=== PATIENT | male | born 2005 | race Caucasian/White ===

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

== ENCOUNTER 2025-03-16 14:47 | Emergency (ER) | payer OTHER ==
[~2025-03-16] VITALS: Wt 108.9 kg
[~2025-03-16 14:47] MED LIST: MELOXICAM15 MG PO
[2025-03-16 15:38] LABS: BASO # 0.0 10*3/uL (0.0-0.1); BASO % 0.4 % (0.0-1.0); EOS # 0.1 10*3/uL (0.0-0.4); EOS % 1.2 % (1.0-4.0); MEAN CELL VOLUME 89.0 fl (80.0-94.0); MEAN CORPUSCULAR HGB 30.0 pg (27.0-31.0); MEAN PLATELET VOLUME 10.7 fl (9.6-12.3); MONO # 0.6 10*3/uL (0.1-1.0); MONO % 7.6 % (3.0-9.0); NEUT # 4.7 10*3/uL (2.3-7.9); NEUT % 64.4 % (47.0-73.0); NUCLEATED RED BLOOD CELL 0.0 % (0.0-0.0); NUCLEATED RED BLOOD CELL 0.0 10*3/uL (0.0-0.0); PLATELET COUNT AUTOMATED 240 10*3/uL (130-400); RED CELL DISTRI WIDTH 12.7 % (0-14.5)
[2025-03-16 16:00] LABS: BUN 13 mg/dl (9-23); SGPT/ALT 50 U/L (5-49)
[2025-03-16] MEDS ORDERED: PRILOSEC20 M1 PO (16:39)
== END 2025-03-16 16:47 | disposition home or self-care (01) ==
LOC: ED 14:47
PROVIDERS: Nurse Practitioner Family
DX: K92.0 Hematemesis (principal); K21.9 Gastro-esophageal reflux disease without esophagitis